=== PATIENT | female | born 1945 | race Caucasian/White ===

== ENCOUNTER → 2018-02-07 10:24 | Outpatient (CLI) | payer MEDICARE, OTHER, SELFPAY ==
[2018-02-07 11:14] LABS: Add Manual Diff / Slide Review NO; Basophils Percent Auto 0.4 % (0-2); Eosinophils Percent Auto 1.1 % (2-4); Hematocrit 46.3 % (36-46); Hemoglobin 15.8 g/dL (12.0-16.0); Lymphocytes Percent Auto 24.7 % (25-40); Mean Corpuscular HGB Conc 34.1 % (30-36); Mean Corpuscular Hemoglobin 32.7 PG (26-34); Mean Corpuscular Volume 95.8 fL (80-100); Monocytes Percent Auto 6.8 % (3-14); Neutrophils Absolute Auto 5800 /uL (3000-5900); Platelet Count 254 X10^3/uL (150-400); Red Blood Cell Count 4.84 X10^6/uL (4.0-5.2); Red Cell Distribution Width 13.4 % (11.6-14.8); White Blood Cell Count 8.6 X10^3/uL (4.5-11.0)
[2018-02-07 11:29] LABS: PTT Partial Thromboplastin Tim 32 SECONDS (26.4-36.2)
== END ==
PROVIDERS: PCP Family Medicine; Visit Provider Internal Medicine
DX: K92.1 Melena (principal)
CPT/HCPCS: 36415; 85025; 85610; 85730

== ENCOUNTER → 2018-04-13 07:41 | Outpatient (CLI) | payer MEDICARE, OTHER, SELFPAY ==
[2018-04-13 10:12] LABS: Alanine Aminotransferase 19 IU/L (9-52); Albumin 4.1 g/dL (3.5-5.0); Albumin Globulin Ratio 1.2 (1.0-2.8); Alkaline Phosphatase 100 U/L (38-126); Aspartate Aminotransferase 26 IU/L (14-36); BUN Creatinine Ratio 21.4 (6-22); Bilirubin Total 0.5 mg/dL (0.2-1.3); Blood Urea Nitrogen 15 mg/dL (7-17); Calcium 9.1 mg/dL (8.4-10.2); Carbon Dioxide 27 mmol/L (22-32); Chloride 106 mmol/L (98-107); Cholesterol 229 mg/dL (140-199); Estimated Glomerular Filt Rate > 60.0 mL/min (>60); Globulin 3.3 g/dL (1.7-4.1); Glucose 94 mg/dL (80-110); HDL Cholesterol 78 mg/dL (40-60); HEMOLYSIS < 15 (0-50); LDL Cholesterol Calculated 130 mg/dL (<100); Potassium 4.2 mmol/L (3.4-5.1); Sodium 143 mmol/L (137-145); Total Protein 7.4 g/dL (6.3-8.2); Triglycerides 104 mg/dL (35-150)
[2018-04-13 10:32] LABS: Thyroid Stimulating Hormone 1.34 uIU/mL (0.47-4.68)
== END ==
PROVIDERS: PCP Family Medicine; Visit Provider Family Medicine
DX: Z13.0 Encounter for screening for diseases of the blood and blood-forming organs and certain disorders involving the immune mechanism (principal); Z13.220 Encounter for screening for lipoid disorders; Z13.29 Encounter for screening for other suspected endocrine disorder
CPT/HCPCS: 36415; 80053; 80061; 84443

== ENCOUNTER 2018-04-22 11:54 | Day surgery (SDC) | payer MEDICARE, OTHER, SELFPAY ==
--- NOTE | 2018-04-22 | PATH_ITS ---
[facility] Accession Number: [id number] . 01 Material submitted: . PART A: RANDOM CECUM BIOPSIES PART B: RANDOM COLON BIOPSIES . 02 Diagnosis: A-B. Random Cecum, Random Colon, Biopsies: Lymphocytic colitis. MRV/04/23/2018 . 02 Comment: As part of routine quality engineer medical device, Dr. Gillette has reviewed this case and agrees with the above diagnosis. . 02 Electronically signed: . Kehinde Mercado MD, PhD, Pathologist NPI- [id number] . 01 Gross description: . Received two formalin-filled containers both labeled with the patient's name. . A. In a container labeled random cecum are multiple less than 0.1 to 0.3 cm portions of tissue. Entirely submitted in cassette A. B. In a container labeled random colon are multiple 0.1 to 0.3 cm portions of tissue. Filtered, wrapped and entirely submitted in cassette B. ([facility]:[id number]) /[facility] . 02 Pathologist provided ICD-10: K52.89 . 02 CPT . 106641, 311786 Performed at: 01 [facility] [address] [place] [address], [place], [place] [id number] MD Abel Rees MD Phone: [phone] Performed at: 02 [facility] [address] [place], [place] [id number] MD Diane Gillette MD Phone: [phone]
[2018-04-22] MEDS: SODIUM CHLORIDE 0.9% 1,000 ML 200 ML IV ×2 (12:09→14:29)
[2018-04-22 12:13] VITALS: BP 154/84; PULSE 77; RESP 18; TEMP 36.9; O2SAT 100; BMI 25.2
--- NOTE | 2018-04-22 13:03 | PM.HP.1 ---
History of Present Illness Date Patient Seen: 04/22/18 Time Patient Seen: 13:03 Chief complaint: [id number] Narrative: Patient is woman with chronic diarrhea and occasional blood in her stool here for screening colonoscopy. Patient History Medical History Foot pain (Chronic) Knee pain (Chronic) Osteoporosis (Chronic) Scoliosis (Chronic) Shoulder pain (Chronic) Sjogren's syndrome (Chronic) Chicken pox (Resolved) Fractures (Resolved) Measles (Resolved) Mumps (Resolved) Surgical History Anesthesia complication (Resolved) History of colonoscopy (Resolved 03/22/12) Family & Social History Family History: Reviewed 04/22/18 by Noel Ray MD Social History: household members spouse Tobacco & Substance use: Smoking Status Never smoker alcohol intake current Meds Home Medications Medication Instructions Recorded Confirmed Type calcium carbonate 600 mg PO DAILY #0 10/11/16 04/22/18 History multivitamin [Multiple Vitamins] 1 tab PO QDAY #0 10/11/16 04/22/18 History Allergies Allergy/AdvReac Type Severity Reaction Status Date / Time ampicillin [AMPICILLIN] Allergy Mild ANGIOEDEMA Unverified 04/19/18 09:55 Sulfa (Sulfonamide Allergy Mild RASH Unverified 04/19/18 09:55 Antibiotics) [SULFA (SULFONAMIDE ANTIBIOTICS)] Exam Vital Signs (past 8 hours): - 04/22/18 12:13 Temperature 98.4 F Pulse Rate 77 Respiratory Rate 18 Blood Pressure 154/84 H Pulse Oximetry 100 Oxygen Delivery Method Room Air Narrative Exam Narrative: Operative no apparent distress. Lungs are clear to auscultation. Heart regular rate and rhythm no murmur gallop abdomen is soft nontender without mass. Alert oriented x3. Assessment & Plan Plan: Assessment/Plan Narrative: Patient with chronic diarrhea rectal bleeding due for screening colonoscopy. I have discussed procedure rationale with her. Risks of bleeding, perforation were advance the state major operation, failure to find removal lesions the potential tattoo were discussed. Patient wished proceed.
--- NOTE | 2018-04-22 13:06 | PM.PREOP ---
Pre-operative Note Interval Note Pre-op Check: Yes History & Physical exam performed today by Physician Changes: No ASA Class (for procedural sedation): I
[2018-04-22] MEDS: MIDAZOLAM 5 MG/5 ML VIAL IV (14:31)
[2018-04-22] MEDS: fentaNYL 250 MCG/5 ML INJ IV (14:31)
[2018-04-22 14:45] VITALS: BP 145/74; PULSE 76; RESP 16; TEMP 36.6; O2SAT 97
--- NOTE | 2018-04-22 14:47 | P.OP.ENDO_ITS ---
Operative Date/Time/Diagnoses Date of procedure: 04/22/18 Time of procedure: 14:38 Post-op diagnosis: same (Mild appearing colitis without ulceration. Internal hemorrhoids small without ulceration.) Procedure & Clinicians Study performed: Colonoscopy with cold biopsy Same procedure as scheduled: Yes Indications: Screening. chronic diarrhea Surgeon: Noel Ray Procedure Notes SCOAP/Timeout: Performed Procedure in detail: The patient was placed in the left lateral decubitus position and underwent IV sedation directed by the surgeon consisting of fentanyl and Versed. Digital exam was remarkable for an increased sphincter tone.. The scope was inserted and advanced through the rectum into the sigmoid , descending, transverse, and ascending colon. We had to apply pressure repositioned the patient, and insert a stiffener in order to reach the ascending colon and cecum. The entire colon was somewhat injected/inflamed. There were no ulcers however. I chose to biopsy randomly and found that the mucosa came off in small sheets and bled easily. The cecum was reached identified by the ileocecal valve and the appendiceal opening. The ileocecal valve was unable to be cannulated. The scope was gradually brought out. Some biopsies of the surface of the ileocecal valve were included with the cecal biopsies I think. No Polyps were found. The scope ultimately was retroflexed in the rectum. The appearance was normal except for some small non ulcerated internal hemorrhoids.. The scope was removed and the patient tolerated the procedure well Scope withdrawal time: 11 min Sedation minutes: 32 Findings: colitis (Very mild if present. Biopsies pending.) and internal hemorrhoids Specimen(s): other (Random colon cecal biopsies) Complications: none Recommendations: Colonscopy in 5 years Follow up: as needed Disposition: PACU
[2018-04-22 14:49] VITALS: BP 129/70; PULSE 82; RESP 17; O2SAT 97
[2018-04-22 14:56] VITALS: BP 151/84; PULSE 75; RESP 17; TEMP 36.3; O2SAT 99
[2018-04-22 16:30] LABS: Adenovirus F 40/41 Not Detected (Not Detect); Astrovirus Not Detected (Not Detect); Campylobacter Not Detected (Not Detect); Clostridium difficile toxin AB Not Detected (Not Detect); Cryptosporidium Not Detected (Not Detect); Cyclospora cayetanensis Not Detected (Not Detect); Entamoeba histolytica Not Detected (Not Detect); Enteroaggregative E.coli Not Detected (Not Detect); Enteropathogenic E.coli Not Detected (Not Detect); Enterotoxigenic E.coli It/st Not Detected (Not Detect); Giardia lamblia Not Detected (Not Detect); Norovirus GI/GII Not Detected (Not Detect); Plesiomonsa shigelloides Not Detected (Not Detect); Rotavirus A Not Detected (Not Detect); Salmonella Not Detected (Not Detect); Sapovirus Not Detected (Not Detect); Shiga-like toxin-prod E.coli Not Detected (Not Detect); Shigella/Enteroinvasive E.coli Not Detected (Not Detect); Vibrio Not Detected (Not Detect); Vibrio cholerae Not Detected (Not Detect); Yersinia enterocolitica Not Detected (Not Detect)
== END 2018-04-22 15:18 | disposition home or self-care (01) ==
PROVIDERS: Family Provider Family Medicine; PCP Family Medicine; Visit Provider Specialist
PROC: 0DJD8ZZ Inspection of Lower Intestinal Tract, Via Natural or Artificial Opening Endoscopic (ICD-10-PCS; CPT 45378; principal; 2018-04-22 12:45)
DX: K52.89 Other specified noninfective gastroenteritis and colitis (principal); R19.7 Diarrhea, unspecified; M35.00 Sjogren syndrome, unspecified; K64.8 Other hemorrhoids
CPT/HCPCS: 45380; 87507; 88305; 99152; 99153; J2250; J3010

== ENCOUNTER 2018-04-23 01:44 | Emergency (ER) | payer MEDICARE, OTHER, SELFPAY ==
[2018-04-23 01:53] VITALS: BP 177/79; PULSE 104; RESP 16; TEMP 37.9; O2SAT 98; BMI 25.2
--- NOTE | 2018-04-23 02:01 | DI.RAD.S_ITS ---
PROCEDURE: XR CHEST 1V INDICATIONS: fever/chills post-op colonoscopy TECHNIQUE: One view of the chest was acquired. COMPARISON: [facility], , CHEST 2 VIEW, 02/14/2011, 12:41. FINDINGS: Surgical changes and devices: None. Lungs and pleura: No pleural effusions or pneumothorax. No acute consolidation. There is scattered subsegmental atelectasis and/or scarring Mediastinum: Mediastinal contours appear normal. Heart size is normal. Bones and chest wall: No suspicious bony lesions. Overlying soft tissues appear unremarkable. Lateral curvature of the spine and discogenic changes. IMPRESSION: No acute disease. Widespread mild diffuse ill-defined and groundglass opacities presumably chronic interstitial changes and scarring. Although in the absence of more recent comparison studies, cannot entirely exclude much less likely pulmonary edema. Please correlate clinically. Dictated by: Abdulaziz Sarmiento M.D. on 04/23/2018 at 8:19 Approved by: Abdulaziz Sarmiento M.D. on 04/23/2018 at 8:23
[2018-04-23] MEDS: SODIUM CHLORIDE 0.9% 1,000 ML 1000 ML IV (02:22)
[2018-04-23 02:23] VITALS: TEMP 37.9
[2018-04-23] MEDS: ACETAMINOPHEN 325 MG TABLET 650 MG PO (02:23)
[2018-04-23] MEDS: IBUPROFEN 400 MG TABLET 800 MG PO (02:23)
[2018-04-23 02:24] LABS: Add Manual Diff / Slide Review NO; Basophils Percent Auto 0.5 % (0-2); Hematocrit 41.3 % (36-46); Lymphocytes Percent Auto 7.1 % (25-40); Mean Corpuscular Hemoglobin 32.2 PG (26-34); Mean Corpuscular Volume 94.7 fL (80-100); Monocytes Percent Auto 4.6 % (3-14); Neutrophils Absolute Auto 12800 /uL (3000-5900); Neutrophils Percent Auto 86.8 % (50-75); Platelet Count 279 X10^3/uL (150-400); Red Blood Cell Count 4.36 X10^6/uL (4.0-5.2); Red Cell Distribution Width 12.8 % (11.6-14.8); White Blood Cell Count 14.7 X10^3/uL (4.5-11.0)
--- NOTE | 2018-04-23 02:26 | ED_ITS ---
HPI - Fever General Chief Complaint: Fever Stated Complaint: CHILLS, HAD COLONSCOPY YESTERDAY Time Seen by Provider: 04/23/18 02:01 Source: patient and other (Dr. Ray) Mode of arrival: ambulatory Limitations: no limitations History of Present Illness HPI Narrative: Patient presents emergency department complaining of a feeling of chills that woke her up tonight. Patient has had a colonoscopy with Dr. Ray yesterday, after having ill formed, frequent stools for some time. Patient states she had also been having blackish green stool color. Patient denies feeling ill prior to her colonoscopy. She does note that she was very tired because of being up most of the night with the bowel prep. She states that after the procedure, she spent about an hour and half sleeping on the couch , and did not do very much today. She does not believe she was catheterized or intubated during the procedure. Patient is not a diabetic and states she is otherwise healthy. She did have a flu shot 3 days ago, but states she felt fine for the 1st 2 days after the vaccine was administered. No sick contacts. No other complaints at this time. Patient denies any URI type symptoms. No abdominal pain. She has had a slight amount of blood in her stool since the colonoscopy but otherwise, stooling has been unremarkable. No dysuria. The colonoscopy reportedly showed diffuse inflammation throughout the bowel, for which reason biopsies were performed. Related Data Home Medications Medication Instructions Recorded Confirmed calcium carbonate 600 mg PO DAILY #0 10/11/16 04/22/18 multivitamin [Multiple Vitamins] 1 tab PO QDAY #0 10/11/16 04/22/18 Previous Rx's Medication Instructions Recorded nitrofurantoin monohyd/m-cryst 100 mg PO BID #14 cap 04/23/18 [Macrobid] Allergies Allergy/AdvReac Type Severity Reaction Status Date / Time ampicillin [AMPICILLIN] Allergy Mild ANGIOEDEMA Verified 04/23/18 01:55 Sulfa (Sulfonamide Allergy Mild RASH Verified 04/23/18 01:55 Antibiotics) [SULFA (SULFONAMIDE ANTIBIOTICS)] Review of Systems Review of Systems All systems reviewed & are unremarkable except as noted in HPI and below Constitutional Reports chills, Denies fever(s), Denies lethargy and Denies weakness Eyes Denies change in vision, Denies eye discharge, Denies irritation and Denies loss of vision ENT Ears, Nose, Mouth, and Throat: Denies change in voice, Denies neck pain and Denies sore throat Cardiovascular Denies chest pain, Denies irregular heart rhythm, Denies lightheadedness, Denies palpitations, Denies dyspnea, Denies dyspnea on exertion and Denies orthopnea Respiratory Denies cough, Denies dyspnea, Denies dyspnea on exertion and Denies wheezing Gastrointestinal Gastrointestinal: Denies abdominal pain, Denies change in bowel habits, Denies diarrhea, Denies nausea and Denies vomiting Genitourinary Denies hematuria, Denies flank pain, Denies urinary incontinence and Denies urinary urgency Musculoskeletal Denies neck pain Integumentary/Breasts Denies pruritus, Denies erythema, Denies rash and Denies wounds Neurologic Denies confusion, Denies loss of vision and Denies weakness Psychiatric Denies anxiety, Denies confusion, Denies depression, Denies homicidal ideation and Denies suicidal ideation Endocrine Denies palpitations Hematologic/Lymphatic Denies easy bruising Allergic/Immunologic Denies wheezing [facility] Medical History Foot pain (Chronic) Knee pain (Chronic) Osteoporosis (Chronic) Scoliosis (Chronic) Shoulder pain (Chronic) Sjogren's syndrome (Chronic) Chicken pox (Resolved) Fractures (Resolved) Measles (Resolved) Mumps (Resolved) Surgical History Anesthesia complication (Resolved) History of colonoscopy (Resolved 03/22/12) Family History Father Heart disease High cholesterol Osteoporosis Grandfather Stroke Mother Diabetes mellitus High cholesterol Grandfather Cancer Sister No problems noted. Social History marital status: household members: spouse occupational status: previously employed Smoking Status: Never smoker alcohol intake: current substance use type: does not use Exam Initial Vital Signs Initial Vital Signs: Vital Signs Temperature 100.2 F H 04/23/18 01:53 Pulse Rate 104 H 04/23/18 01:53 Respiratory Rate 16 04/23/18 01:53 Blood Pressure 177/79 H 04/23/18 01:53 Pulse Oximetry 98 04/23/18 01:53 Const General: cooperative and well developed Nutritional Appearance: well nourished Orientation: alert, awake, oriented x3 and not confused [facility] Head: normocephalic and atraumatic Ears: external ears normal Nose: external nose normal and No nasal discharge Face and sinus: face symmetric and No dry mucous membranes Mouth: oral mucosae normal and moist mucous membranes Teeth and gingiva: dentition normal Eyes General: appearance normal, both eyes and all related structures Eyelids: eyelids normal Conjunctivae: conjunctivae normal Sclera: sclerae normal Pupils: PERRL EOM: EOM intact bilaterally Neck Neck: normal visual inspection, trachea midline, No lymphadenopathy, No midline deformity and No JVD Lymphatic: No lymphedema Chest Chest: normal inspection of the chest Resp Effort & Inspection: normal respiratory effort, able to speak in complete sentences, no respiratory distress and no use of accessory muscles Auscultation: clear to auscultation bilaterally, no rales, no rhonchi and no wheezes Cardio Rate: regular rate Rhythm: regular rhythm Heart Sounds: no click, no gallops, no murmurs and no rubs Pulses: normal peripheral pulses GI Inspection: non-distended Palpation: soft, no hepatosplenomegaly, No guarding, No pulsatile mass and tender (Mild, epigastric and right lower quadrant.) Back/Spine/Pelvis Back: No CVA tenderness Cervical Spine: cervical ROM normal and No pain with cervical ROM Thoracic/Lumbar Spine: thoracic and lumbar spine normal to inspection Skin General: no rashes or lesions noted, No jaundice and No petechiae Neuro General: alert, oriented x3, gait normal and no focal motor deficits Speech: speech normal Extrem General: full ROM, no clubbing, cyanosis or edema, no pedal edema and no calf tenderness Psych Appearance: well kempt Mental Status: mental status grossly normal Attitude: cooperative Thought Content: normal and suicidality Judgment: judgment good Course Course Narrative: Patient was worked up with labs, chest x-ray, and urinalysis. She was given a L of normal saline, as well as doses of Tylenol and ibuprofen. She was found to have a UTI and leukocytosis, and was treated with Macrobid. Orders Ordered: ED Orders 04/23/18 02:01 XR chest 1V Stat 04/23/18 02:15 Complete Blood Count AUTO DIFF Stat 04/23/18 02:30 Comprehensive Metabolic Panel Stat 04/23/18 03:45 Urinalysis and Microscopic Stat Urine Culture Stat Discontinued Medications Acetaminophen (Tylenol) 650 mg PO NOW ONE Stop: 04/23/18 02:02 Last Admin: 04/23/18 02:23 Dose: 650 mg Sodium Chloride (Normal Saline 0.9%) 1,000 mls @ 1,000 mls/hr IV BOLUS ONE Stop: 04/23/18 03:00 Last Infusion: 04/23/18 03:44 Dose: 0 mls/hr Admin: 04/23/18 02:22 Dose: 1,000 mls/hr Ibuprofen (Advil) 800 mg PO NOW ONE Stop: 04/23/18 02:02 Last Admin: 04/23/18 02:23 Dose: 800 mg Nitrofurantoin Macrocrystals (Macrobid 100 Mg Capsule) 100 mg PO NOW ONE Stop: 04/23/18 05:19 Last Admin: 04/23/18 05:35 Dose: 100 mg Vital Signs - 8 hr 04/23/18 01:53 04/23/18 02:23 04/23/18 03:57 Temperature 100.2 F H 100.2 F H 99.7 F H Pulse Rate 104 H 87 Respiratory Rate 16 16 Blood Pressure 177/79 H Blood Pressure [Right Arm] 144/65 H Pulse Oximetry 98 95 04/23/18 03:59 04/23/18 04:00 04/23/18 05:38 Temperature 99.7 F H 99.7 F H 98.8 F Pulse Rate 87 Respiratory Rate 16 Blood Pressure Blood Pressure [Right Arm] 121/83 Pulse Oximetry 98 MDM - Fever Medical Records Attestation: I reviewed the patient's medical records. Lab Data Attestation: I reviewed the patient's lab results. Result diagrams: 04/23/18 02:15 04/23/18 02:30 Lab Results 04/23/18 04/23/18 04/23/18 Range/Units 02:15 02:30 03:45 WBC 14.7 H (4.5-11.0) X10^3/uL RBC 4.36 (4.0-5.2) X10^6/uL Hgb 14.0 (12.0-16.0) g/dL Hct 41.3 (36-46) % MCV 94.7 (80-100) fL MCH 32.2 (26-34) PG MCHC 34.0 (30-36) % RDW 12.8 (11.6-14.8) % Plt Count 279 (150-400) X10^3/uL Neut % (Auto) 86.8 H (50-75) % Lymph % (Auto) 7.1 L (25-40) % Moore % (Auto) 4.6 (3-14) % Eos % (Auto) 1.0 L (2-4) % Baso % (Auto) 0.5 (0-2) % Neut # (Auto) 18340 H (3078-9132) /uL Sodium 141 (137-145) mmol/L Potassium 3.7 (3.4-5.1) mmol/L Chloride 105 (98-107) mmol/L Carbon Dioxide 21 L (22-32) mmol/L BUN 14 (7-17) mg/dL Creatinine 0.60 (0.52-1.04) mg/dL Estimated GFR > 60.0 (>60) mL/min BUN/Creatinine Ratio 23.3 H (6-22) Glucose 113 H (80-110) mg/dL Calcium 9.2 (8.4-10.2) mg/dL Total Bilirubin 0.6 (0.2-1.3) mg/dL AST 26 (14-36) IU/L ALT 16 (9-52) IU/L Alkaline Phosphatase 114 (38-126) U/L Total Protein 7.8 (6.3-8.2) g/dL Albumin 4.4 (3.5-5.0) g/dL Globulin 3.4 (1.7-4.1) g/dL Albumin/Globulin Ratio 1.3 (1.0-2.8) Urine Color Yellow Urine Appearance Clear Urine pH 5.0 (4.5-8.0) Ur Specific Edwards 1.020 (1.000-1.035) Urine Protein Negative (Negative) Urine Glucose (UA) Negative (Normal) g/dL Urine Ketones Negative (NEGATIVE) Urine Occult Blood 2+ H (Negative) Urine Nitrate Negative (Negative) Urine Bilirubin Negative (NEGATIVE) Urine Urobilinogen 0.2 (0.2) E.U./dL Ur Leukocyte Esterase 2+ H (NEGATIVE) Urine RBC 0-1/hpf (0-5/HPF) Urine WBC 5-10/hpf H (0-5/HPF) Urine Bacteria Few (2-10) H (None) Ur Culture Indicated? Specimen cultured Micro UA Comment Not Reportable Discharge Plan Departure Patient Disposition: Home Clinical Impression: Urinary tract infection Discharge Date/Time: 04/23/18 05:57 Interventions: ED Discharge Assessment Last Done: 04/23/18 05:57 Instructions: DI for Urinary Tract Infection (UTI) Activity Restrictions/Additional Instructions: Your labs showed a mildly elevated white blood cell count, which can signify infection, but otherwise, looked good. Your urinalysis was positive for infection. Please take the antibiotics, as directed, until gone, and follow up with your regular doctor in 1 week if not better. Prescriptions: New nitrofurantoin monohyd/m-cryst [Macrobid] 100 mg capsule 100 mg PO BID Qty: 14 RF: 0 No Action multivitamin [Multiple Vitamins] 1 EACH tablet 1 tab PO QDAY Qty: 0 RF: 0 calcium carbonate 600 MG tablet 600 mg PO DAILY Qty: 0 RF: 0 Referrals: Macrina Iniguez MD [Primary Care Provider] -
[2018-04-23 02:53] LABS: Alanine Aminotransferase 16 IU/L (9-52); Albumin 4.4 g/dL (3.5-5.0); Albumin Globulin Ratio 1.3 (1.0-2.8); Alkaline Phosphatase 114 U/L (38-126); Aspartate Aminotransferase 26 IU/L (14-36); BUN Creatinine Ratio 23.3 (6-22); Bilirubin Total 0.6 mg/dL (0.2-1.3); Blood Urea Nitrogen 14 mg/dL (7-17); Calcium 9.2 mg/dL (8.4-10.2); Carbon Dioxide 21 mmol/L (22-32); Chloride 105 mmol/L (98-107); Estimated Glomerular Filt Rate > 60.0 mL/min (>60); Globulin 3.4 g/dL (1.7-4.1); Glucose 113 mg/dL (80-110); HEMOLYSIS 20 (0-50); Potassium 3.7 mmol/L (3.4-5.1); Sodium 141 mmol/L (137-145); Total Protein 7.8 g/dL (6.3-8.2)
[2018-04-23 03:57] VITALS: BP 144/65; PULSE 87; RESP 16; TEMP 37.6; O2SAT 95
[2018-04-23 03:59] VITALS: TEMP 37.6
[2018-04-23 04:00] VITALS: TEMP 37.6
[2018-04-23 04:17] LABS: Appearance Urine UA CLEAR; Bilirubin Urine UA NEGATIVE (NEGATIVE); Color Urine UA YELLOW; Glucose Urine UA NEGATIVE (Normal); Ketones Urine UA NEGATIVE (NEGATIVE); Leukocyte Esterase Urine UA 2+ (NEGATIVE); Nitrite Urine UA NEGATIVE (Negative); Occult Blood Urine UA 2+ (Negative); Protein Urine UA NEGATIVE (Negative); Urobilinogen Urine UA 0.2 E.U./dL (0.2)
[2018-04-23 04:41] LABS: WBC Urine 5-10/HPF (0-5/HPF)
[2018-04-23 04:43] LABS: Bacteria Urine Few (2-10); Culture Indicated Urine Specimen Cultured; RBC Urine 0-1/HPF (0-5/HPF)
[2018-04-23] MEDS: NITROFURANTOIN ER 100 MG CAPSULE PO (05:35)
[2018-04-23 05:38] VITALS: BP 121/83; PULSE 87; RESP 16; TEMP 37.1; O2SAT 98
== END 2018-04-23 05:57 | disposition home or self-care (01) ==
PROVIDERS: Emergency Provider Emergency Medicine; PCP Family Medicine
DX: N39.0 Urinary tract infection, site not specified (principal)
CPT/HCPCS: 36415; 36591; 71045; 80053; 81001; 85025; 87086; 96360; 99283; 99284

== ENCOUNTER → 2018-04-29 11:55 | Outpatient (CLI) | payer MEDICARE, OTHER, SELFPAY ==
--- NOTE | 2018-04-29 | DI.MG.S_ITS ---
BILATERAL DIGITAL SCREENING MAMMOGRAM 3D/2D WITH CAD: 04/29/2018 CLINICAL: Routine screening. Comparison is made to exams dated: 11/01/2016 mammogram, 05/06/2015 mammogram, and 03/20/2014 mammogram - [facility]. There are scattered fibroglandular elements in both breasts. Current study was also evaluated with a Computer Aided Detection (CAD) system. No significant masses, calcifications, or other findings are seen in either breast. There has been no significant interval change. IMPRESSION: NEGATIVE There is no mammographic evidence of malignancy. A 1 year screening mammogram is recommended. This exam was interpreted at Station ID: [id number]. NOTE: For mammograms, a report in lay terms will be sent to the patient. Approximately 15% of breast malignancies will not be visualized mammographically. In the management of a palpable breast mass, a negative mammogram must not discourage biopsy of a clinically suspicious lesion. Electronically Signed By: Abel simms/chase:04/30/2018 11:36:35 letter sent: Normal Exam ACR BI-RADS Category 1: Negative 3341F
== END ==
PROVIDERS: PCP Family Medicine; Visit Provider Family Medicine
DX: Z12.31 Encounter for screening mammogram for malignant neoplasm of breast (principal)
CPT/HCPCS: 77063; 77067

== ENCOUNTER → 2018-05-10 16:59 | Outpatient (CLI) | payer MEDICARE, OTHER, SELFPAY ==
[2018-05-10 17:27] LABS: Appearance Urine UA CLEAR; Bilirubin Urine UA NEGATIVE (NEGATIVE); Color Urine UA YELLOW; Glucose Urine UA NEGATIVE (Normal); Ketones Urine UA NEGATIVE (NEGATIVE); Leukocyte Esterase Urine UA 1+ (NEGATIVE); Nitrite Urine UA NEGATIVE (Negative); Occult Blood Urine UA 2+ (Negative); Protein Urine UA NEGATIVE (Negative); Urobilinogen Urine UA 0.2 E.U./dL (0.2)
[2018-05-10 17:41] LABS: Bacteria Urine Occasional (0-1); Culture Indicated Urine Specimen Cultured; RBC Urine 0-1/HPF (0-5/HPF); Squamous Epithelial Cell Urine None Seen; WBC Urine 5-10/HPF (0-5/HPF)
== END ==
PROVIDERS: PCP Family Medicine; Visit Provider Family Medicine
DX: R30.0 Dysuria (principal)
CPT/HCPCS: 81001; 87077; 87086

== ENCOUNTER → 2018-05-14 09:51 | Outpatient (CLI) | payer MEDICARE, OTHER, SELFPAY | PROVIDERS: PCP Family Medicine; Visit Provider Family Medicine | DX: R10.9 Unspecified abdominal pain (principal) | CPT/HCPCS: 87086 ==

== ENCOUNTER → 2020-09-07 10:00 | Outpatient (CLI) | payer MEDICARE, OTHER, SELFPAY ==
[2020-09-07 12:15] LABS: Appearance Urine UA CLEAR; Bilirubin Urine UA NEGATIVE (NEGATIVE); Color Urine UA YELLOW; Glucose Urine UA NEGATIVE (Negative); Ketones Urine UA NEGATIVE (NEGATIVE); Leukocyte Esterase Urine UA 1+ (NEGATIVE); Nitrite Urine UA NEGATIVE (Negative); Occult Blood Urine UA 3+ (Negative); Protein Urine UA TRACE (Negative); Specific Gravity Urine UA >=1.030 (1.000-1.035); Urobilinogen Urine UA 0.2 E.U./dL (0.2)
[2020-09-07 12:36] LABS: Bacteria Urine Few (2-10); Culture Indicated Urine Specimen Cultured; RBC Urine 30-100/HPF (0-5/HPF); Squamous Epithelial Cell Urine 1-5 /HPF (0-5/HPF); WBC Urine >100/HPF (0-5/HPF)
== END ==
PROVIDERS: PCP Family Medicine; Referring Provider Family Medicine; Visit Provider Family Medicine
DX: R30.0 Dysuria (principal); R35.0 Frequency of micturition; R39.15 Urgency of urination
CPT/HCPCS: 81001; 87077; 87086; 87186

== ENCOUNTER → 2020-09-25 10:33 | Outpatient (CLI) | payer MEDICARE, OTHER, SELFPAY ==
--- NOTE | 2020-09-25 10:37 | DI.MG.S_ITS ---
BILATERAL DIGITAL SCREENING MAMMOGRAM 3D/2D WITH CAD: 09/25/2020 CLINICAL: Routine screening. Comparison is made to exams dated: 04/29/2018 mammogram, 11/01/2016 mammogram, 05/06/2015 mammogram, and 03/20/2014 mammogram - [facility]. There are scattered fibroglandular elements in both breasts. Current study was also evaluated with a Computer Aided Detection (CAD) system. No significant masses, calcifications, or other findings are seen in either breast. There has been no significant interval change. IMPRESSION: NEGATIVE There is no mammographic evidence of malignancy. A 1 year screening mammogram is recommended. This exam was interpreted at Station ID: [id number]. NOTE: For mammograms, a report in lay terms will be sent to the patient. Approximately 15% of breast malignancies will not be visualized mammographically. In the management of a palpable breast mass, a negative mammogram must not discourage biopsy of a clinically suspicious lesion. Electronically Signed By: Chase betancourt/chase:09/27/2020 08:20:52 letter sent: Normal Exam ACR BI-RADS Category 1: Negative 3341F
== END ==
PROVIDERS: PCP Family Medicine; Referring Provider Family Medicine; Visit Provider Family Medicine
DX: Z12.31 Encounter for screening mammogram for malignant neoplasm of breast (principal)
CPT/HCPCS: 77063; 77067

== ENCOUNTER → 2021-11-07 07:09 | Outpatient (CLI) | payer MEDICARE, OTHER, SELFPAY ==
--- NOTE | 2021-11-07 07:13 | DI.RAD.S_ITS ---
PROCEDURE: XR LUMBAR SPINE 2-3V INDICATIONS: Low back pain; possible OA TECHNIQUE: 3 views of the lumbar spine were acquired. COMPARISON: None. FINDINGS: Bones: 5 [id number] vertebrae are present. There is normal bony alignment. There is approximately 20? of convex left lumbar spine scoliosis. No vertebral body compression fractures. No suspicious bony lesions. Mild degenerative disc changes noted throughout the thoracic spine. Mild to moderate L3-L4, L4-L5 and L5-S1 facet arthropathy. Mild L2-L3 facet arthropathy. Soft tissues: Overlying bowel gas pattern is normal. No suspicious soft tissue calcifications. IMPRESSION: 1. Multilevel degenerative disc disease. 2. Multilevel facet arthropathy. 3. No fracture. No acute osseous lesion. If symptoms and/or clinical suspicion for pathology persists, evaluation with MRI should be considered for further assessment. 4. Convex left scoliosis. Dictated by: Carmel Brock MD, PhD on 11/07/2021 at 13:22 Approved by: Carmel Brock MD, PhD on 11/07/2021 at 13:23
--- NOTE | 2021-11-07 07:13 | DI.RAD.S_ITS ---
PROCEDURE: XR HIP W PEL IF DONE CARA MIN 4V INDICATIONS: bilateral hip pain R > L; suspect OA TECHNIQUE: AP pelvis with lateral view(s) of the right and left hip(s). COMPARISON: None. FINDINGS: Bones: No fractures or dislocations. Pelvic ring appears intact. No suspicious bony lesions. Soft tissues: The visualized bowel gas pattern is normal. No suspicious soft tissue calcifications. IMPRESSION: . No osseous lesion. If symptoms and/or clinical suspicion for pathology persists, further assessment with advanced imaging (e.g. CT, MRI or bone scan) should be considered. Dictated by: Carmel Brock MD, PhD on 11/07/2021 at 13:40 Approved by: Carmel Brock MD, PhD on 11/07/2021 at 13:41
[2021-11-07 09:11] LABS: Alanine Aminotransferase 15 IU/L (<35); Albumin 4.3 g/dL (3.5-5.0); Albumin Globulin Ratio 1.3 (1.0-2.8); Alkaline Phosphatase 107 U/L (38-126); Aspartate Aminotransferase 28 IU/L (14-36); BUN Creatinine Ratio 15.3 (6-22); Bilirubin Total 0.6 mg/dL (0.2-1.3); Blood Urea Nitrogen 13 mg/dL (7-17); Carbon Dioxide 27 mmol/L (22-32); Chloride 106 mmol/L (98-107); Cholesterol 262 mg/dL (140-199); Estimated Glomerular Filt Rate > 60 mL/min (>60); Globulin 3.3 g/dL (1.7-4.1); Glucose 99 mg/dL (80-110); HEMOLYSIS < 15 (0-50); Potassium 4.5 mmol/L (3.4-5.1); Sodium 141 mmol/L (137-145); Total Protein 7.6 g/dL (6.3-8.2); Triglycerides 115 mg/dL (35-150)
[2021-11-07 09:32] LABS: TSH w/ Reflex to FT4 1.86 uIU/mL (0.47-4.68)
[2021-11-07 09:39] LABS: HDL Cholesterol 141 mg/dL (40-60); LDL Cholesterol Calculated 98 mg/dL (<100)
== END ==
PROVIDERS: PCP Family Medicine; Referring Provider Physician Assistant; Visit Provider Physician Assistant
DX: M47.817 Spondylosis without myelopathy or radiculopathy, lumbosacral region (principal); M51.36 Other intervertebral disc degeneration, lumbar region; M41.86 Other forms of scoliosis, lumbar region; M25.552 Pain in left hip; M25.551 Pain in right hip; M47.816 Spondylosis without myelopathy or radiculopathy, lumbar region; M54.50 Low back pain, unspecified; E78.5 Hyperlipidemia, unspecified; K52.832 Lymphocytic colitis; R03.0 Elevated blood-pressure reading, without diagnosis of hypertension
CPT/HCPCS: 36415; 72100; 73522; 80053; 80061; 84443

== ENCOUNTER → 2021-12-01 12:30 | Outpatient (CLI) | payer MEDICARE, OTHER, SELFPAY | PROVIDERS: PCP Family Medicine; Referring Provider Physician Assistant; Visit Provider Physician Assistant | DX: E28.39 Other primary ovarian failure (principal); Z82.62 Family history of osteoporosis; M81.0 Age-related osteoporosis without current pathological fracture | CPT/HCPCS: 77080 ==

== ENCOUNTER → 2022-01-16 10:19 | Outpatient (CLI) | payer MEDICARE, OTHER, SELFPAY | PROVIDERS: PCP Family Medicine; Visit Provider Family Medicine | DX: R35.0 Frequency of micturition (principal) | CPT/HCPCS: 87086 ==

== ENCOUNTER → 2022-04-26 10:29 | Outpatient (CLI) | payer MEDICARE, OTHER, SELFPAY ==
[2022-04-27 08:11] LABS: Immunoglobulin A 571 mg/dL (64-422)
[2022-04-27 18:14] LABS: Tissue Transglutaminase IgA <2 U/mL (0-3); Tissue Transglutaminase IgG <2 U/mL (0-5)
== END ==
PROVIDERS: PCP Family Medicine; Referring Provider Internal Medicine Gastroenterology; Visit Provider Internal Medicine Gastroenterology
DX: R19.7 Diarrhea, unspecified (principal); K52.832 Lymphocytic colitis
CPT/HCPCS: 36415; 82784; 83516

== ENCOUNTER → 2023-01-09 13:25 | Outpatient (CLI) | payer MEDICARE, OTHER, SELFPAY ==
--- NOTE | 2023-01-09 13:27 | DI.RAD.S_ITS ---
PROCEDURE: XR FOOT RT MIN 3V INDICATIONS: R FOOT PAIN TECHNIQUE: 3 views of the foot were acquired. COMPARISON: [facility], , FOOT 3V RIGHT, 04/25/2016, 15:48. FINDINGS: Bones: No fractures or dislocations. No suspicious bony lesions. 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 Soft tissues: No tibiotalar joint effusion. Achilles tendon appears normal. IMPRESSION: No fracture. No acute osseous lesion. If symptoms and/or clinical suspicion for pathology persists, further assessment with repeat radiographs (7-10 days) or advanced imaging (e.g. CT, MRI or bone scan) should be considered. Dictated by: Carmel Brock MD, PhD on 01/09/2023 at 14:28 Approved by: Carmel Brock MD, PhD on 01/09/2023 at 14:28
--- NOTE | 2023-01-09 13:27 | DI.RAD.S_ITS ---
PROCEDURE: XR ANKLE RT MIN 3V INDICATIONS: R FOOT PAIN TECHNIQUE: 3 views of the ankle were acquired. COMPARISON: [facility], , ANKLE 3 VIEWS LEFT, 01/15/2015, 15:54. FINDINGS: Bones: No fractures or dislocations. Ankle mortise is normally aligned. No suspicious bony lesions. Soft tissues: No tibiotalar joint effusion. Achilles tendon appears normal. IMPRESSION: No acute abnormality. Dictated by: Charles Sorenson M.D. on 01/09/2023 at 15:04 Approved by: Charles Sorenson M.D. on 01/09/2023 at 15:04
== END ==
PROVIDERS: PCP Family Medicine; Referring Provider Student in an Organized Health Care Education/Training Program; Visit Provider Student in an Organized Health Care Education/Training Program
DX: S93.601A Unspecified sprain of right foot, initial encounter (principal); S93.401A Sprain of unspecified ligament of right ankle, initial encounter; X58.XXXA Exposure to other specified factors, initial encounter
CPT/HCPCS: 73610; 73630

== ENCOUNTER → 2023-09-13 09:43 | Outpatient (CLI) | payer MEDICARE, OTHER, SELFPAY | LOC: CAR 09:45 | PROVIDERS: PCP Family Medicine; Referring Provider Family Medicine; Visit Provider Family Medicine | DX: I63.9 Cerebral infarction, unspecified (principal) | CPT/HCPCS: 93246 ==

== ENCOUNTER 2023-10-09 14:02 | Emergency (ER) | payer MEDICARE, OTHER, SELFPAY ==
[2023-10-09] VITALS (7 sets, daily range): BP systolic 134–166; BP diastolic 68–78; PULSE 67–91; RESP 18; TEMP 36.5; O2SAT 95–100; BMI 24.5
--- NOTE | 2023-10-09 14:15 | ED_ITS ---
HPI - Extremity Problem General Chief complaint: Extremity Problem,Nontraumatic Stated complaint: Thinks she has a blood Sent from her PCP Time Seen by Provider: 10/09/23 14:07 Source: patient Mode of arrival: Ambulatory History of Present Illness HPI Narrative: Patient is a 77-year-old female. Within the past 6 months sustained an ischemic stroke. Is on Plavix. Is here for evaluation of pain and swelling to her left foot and left lower extremity. Denies trauma. He was having quite a bit of difficulty walking on her foot because of the pain. No fevers. No history of gout. No skin changes. No chest pain. No shortness of breath. No abdominal pain or nausea or vomiting. Related Data Home Medications Medication Instructions Recorded Confirmed calcium carbonate 600 mg calcium 600 mg PO DAILY ##0 10/11/16 09/03/23 (1,500 mg) tablet aspirin 81 mg tablet,delayed 81 mg PO DAILY 09/03/23 09/03/23 release (Adult Aspirin Regimen) Previous Rx's Medication Instructions Recorded meloxicam 15 mg tablet 15 mg PO DAILY #30 tabs 11/04/21 Disabled Parking #1 ea 09/03/23 amlodipine 5 mg tablet 5 mg PO BID #180 tabs 09/04/23 atorvastatin 40 mg tablet 40 mg PO DAILY #90 tabs 09/04/23 clopidogrel 75 mg tablet 75 mg PO DAILY #90 tabs 09/04/23 furosemide 20 mg tablet (Lasix) 20 mg PO QAM #14 tabs 10/09/23 Allergies Allergy/AdvReac Type Severity Reaction Status Date / Time ampicillin [AMPICILLIN] Allergy Mild ANGIOEDEMA Verified 09/03/23 11:58 Sulfa (Sulfonamide Allergy Mild RASH Verified 09/03/23 11:58 Antibiotics) [SULFA (SULFONAMIDE ANTIBIOTICS)] Review of Systems Constitutional Constitutional: Reports system reviewed and no additional complaints, except as documented Musculoskeletal Musculoskeletal: Reports system reviewed and no additional complaints, except as documented Integumentary/Breasts Skin/Breast: Reports system reviewed and no additional complaints, except as documented Neurologic Neurologic: Reports system reviewed and no additional complaints, except as documented Hematologic/Lymphatic On Anticoagulants: No Patient History Medical History Family history of osteoporosis Lymphocytic colitis Sjogren's syndrome Fractures Osteoporosis Scoliosis Shoulder pain Mumps Measles Chicken pox Knee pain Foot pain Surgical History Anesthesia complication History of colonoscopy (03/22/12) Family History Father Heart disease High cholesterol Osteoporosis Grandfather Stroke Mother Diabetes mellitus High cholesterol Grandfather Cancer Sister No problems noted. Social History marital status: household members: spouse occupational status: previously employed Smoking Status: Never smoker second hand exposure: No alcohol intake: current substance use type: does not use Smoking Status: Never smoker Substance Use Type: does not use Exam Initial Vital Signs Initial Vital Signs: Vital Signs Temperature 97.7 F 10/09/23 14:05 Pulse Rate 89 10/09/23 14:05 Respiratory Rate 18 10/09/23 14:05 Blood Pressure 162/78 H 10/09/23 14:05 Pulse Oximetry 100 10/09/23 14:05 Oxygen Delivery Method Room Air 10/09/23 14:05 Resp Effort & Inspection: normal respiratory effort Cardio Rate: regular rate Skin General: no rashes or lesions noted Neuro Sensory Exam: no sensory deficits noted Extrem General: capillary refill normal and edema (Left lower extremity) Course Orders Ordered: ED Orders 10/09/23 14:16 US periph venous low extrem lt Stat 10/09/23 14:24 Basic Metabolic Panel Stat Complete Blood Count AUTO DIFF Stat Vital Signs Vital signs: Vital Signs - 8 hr 10/09/23 14:05 10/09/23 14:09 10/09/23 14:10 Temperature 97.7 F Pulse Rate 89 88 91 H Respiratory Rate 18 Blood Pressure 162/78 H Pulse Oximetry 100 95 100 Oxygen Delivery Method Room Air 10/09/23 14:10 10/09/23 15:16 10/09/23 15:17 Temperature Pulse Rate 72 Respiratory Rate Blood Pressure 166/78 H 139/71 Pulse Oximetry 97 Oxygen Delivery Method 10/09/23 15:17 10/09/23 15:30 10/09/23 15:30 Temperature Pulse Rate 69 69 Respiratory Rate Blood Pressure 134/68 Pulse Oximetry 98 99 Oxygen Delivery Method MDM - Extremity (Nontraumatic) Lab Data 10/09/23 14:24 10/09/23 14:24 Labs: Lab Results 10/09/23 Range/Units 14:24 WBC 8.1 (4.5-11.0) X10^3/uL RBC 3.85 L (4.0-5.2) X10^6/uL Hgb 12.4 (12.0-16.0) g/dL Hct 35.9 L (36-46) % MCV 93.1 (80-100) fL MCH 32.2 (26-34) PG MCHC 34.5 (30-36) % RDW 12.4 (11.6-14.8) % Plt Count 320 (150-400) X10^3/uL Neut % (Auto) 66.2 (50-75) % Lymph % (Auto) 23.0 L (25-40) % [place] % (Auto) 7.3 (3-14) % Eos % (Auto) 3.0 (2-4) % Baso % (Auto) 0.5 (0-2) % Neut # (Auto) 5400 (5765-9941) /uL Lymph # (Auto) 1900 (8410-3795) /uL [place] # (Auto) 600 (0-900) /uL Eos # (Auto) 200 (0-450) /uL Baso # (Auto) 0 (0-100) /uL Sodium 140 (137-145) mmol/L Potassium 3.2 L (3.4-5.1) mmol/L Chloride 105 (98-107) mmol/L Carbon Dioxide 28 (22-32) mmol/L BUN 11 (7-17) mg/dL Creatinine 0.65 (0.52-1.04) mg/dL Estimated GFR > 60 (>60) mL/min BUN/Creatinine Ratio 16.9 (6-22) Glucose 147 H (80-110) mg/dL Calcium 9.4 (8.4-10.2) mg/dL Imaging Data US - DVT: Radiologist's Impression: PROCEDURE: US PERIPH VENOUS LOW EXTREM LT INDICATIONS: Swelling, eval for DVT TECHNIQUE: Real-time imaging, as well as color and pulse Doppler interrogation, were performed of the lower extremity deep veins from the inguinal ligament to the popliteal fossa, with documentation of the visualized calf veins. COMPARISON: None. FINDINGS: The common femoral, femoral, popliteal, and the visualized calf veins are normally compressible, and free of intraluminal thrombus. Color and pulse Doppler demonstrate normal phasic intraluminal flow. There is normal augmentation response to distal compression maneuver. IMPRESSION: No findings of lower extremity deep venous thrombosis. MDM Narrative Medical decision making narrative: She does have swelling to her left lower leg. No trauma. Low suspicion for fracture. No skin changes concerning for infection. Low suspicion for septic joint. Low suspicion for gout. Negative for DVT. She was on amlodipine. Potentially this could be causing her symptoms however the plan will be is to what her on Lasix for the next couple days. She has a follow-up with her primary doctor in about 1 month. She was given strict return precautions. She expressed understanding and agreement. Discharge Plan Departure Patient Disposition: Home Clinical Impression: Edema Instructions: How to Use an Elastic Bandage -- Edema, DI for Peripheral Edema- Unilateral Activity Restrictions/Additional Instructions: I do recommend that you take the furosemide/Lasix 1 time a day like we discussed. You can take it as needed. Try to keep your leg elevated. You can use an elastic bandage for compression stockings. If your symptoms worsen or you develop fevers or shortness of breath or redness please return to the emergency department. If your symptoms do not improve on the Lasix you may need a talk with your primary doctor about whether or not this is amlodipine that is causing your symptoms. Prescriptions: New furosemide [Lasix] 20 mg tablet 20 mg PO QAM Qty: 14 0RF No Action meloxicam 15 mg tablet 15 mg PO DAILY Qty: 30 3RF aspirin [Adult Aspirin Regimen] 81 mg tablet,delayed release (DR/EC) 81 mg PO DAILY (DME) Disabled Parking See Rx Instructions .ROUTE .MEDSUPPLY Qty: 1 0RF Rx Instructions: I find this patient to be medical disabled and qualified for Disabled Parking as indicated, and signed, on the and the Accompanying Disabled Parking Application for Individuals. calcium carbonate 600 MG tablet 600 mg PO DAILY Qty: 0 amlodipine 5 mg tablet 5 mg PO BID Qty: 180 3RF atorvastatin 40 mg tablet 40 mg PO DAILY Qty: 90 3RF clopidogrel 75 mg tablet 75 mg PO DAILY Qty: 90 0RF Referrals: Macrina Iniguez MD [Primary Care Provider] - Stand Alone Forms: Patient Portal/API
[2023-10-09 14:30] LABS: Add Manual Diff / Slide Review NO; Basophils Absolute Auto 0 /uL (0-100); Basophils Percent Auto 0.5 % (0-2); Eosinophils Absolute Auto 200 /uL (0-450); Hematocrit 35.9 % (36-46); Hemoglobin 12.4 g/dL (12.0-16.0); Lymphocytes Absolute Auto 1900 /uL (1100-4500); Mean Corpuscular HGB Conc 34.5 % (30-36); Mean Corpuscular Hemoglobin 32.2 PG (26-34); Mean Corpuscular Volume 93.1 fL (80-100); Monocytes Absolute Auto 600 /uL (0-900); Monocytes Percent Auto 7.3 % (3-14); Neutrophils Absolute Auto 5400 /uL (1500-7000); Neutrophils Percent Auto 66.2 % (50-75); Platelet Count 320 X10^3/uL (150-400); Red Blood Cell Count 3.85 X10^6/uL (4.0-5.2); Red Cell Distribution Width 12.4 % (11.6-14.8); White Blood Cell Count 8.1 X10^3/uL (4.5-11.0)
[2023-10-09 14:41] LABS: BUN Creatinine Ratio 16.9 (6-22); Blood Urea Nitrogen 11 mg/dL (7-17); Calcium 9.4 mg/dL (8.4-10.2); Carbon Dioxide 28 mmol/L (22-32); Chloride 105 mmol/L (98-107); Estimated Glomerular Filt Rate > 60 mL/min (>60); Glucose 147 mg/dL (80-110); HEMOLYSIS < 15 (0-50); Potassium 3.2 mmol/L (3.4-5.1); Sodium 140 mmol/L (137-145)
== END 2023-10-09 16:16 | disposition home or self-care (01) ==
PROVIDERS: Emergency Provider Emergency Medicine; PCP Family Medicine
DX: R60.0 Localized edema (principal)
CPT/HCPCS: 80048; 85025; 93971; 99283; 99284

== ENCOUNTER → 2023-11-12 06:42 | Outpatient (CLI) | payer MEDICARE, OTHER, SELFPAY ==
[2023-11-12 08:20] LABS: Hemoglobin A1C% w Est Avg Glu 5.3 % (4.0-6.0)
[2023-11-12 08:43] LABS: Creatinine Urine Random 46.12 mg/dL
[2023-11-12 08:47] LABS: Alanine Aminotransferase 22 IU/L (<35); Albumin 4.2 g/dL (3.5-5.0); Albumin Globulin Ratio 1.4 (1.0-2.8); Alkaline Phosphatase 109 U/L (38-126); Aspartate Aminotransferase 29 IU/L (14-36); BUN Creatinine Ratio 11.3 (6-22); Bilirubin Total 0.7 mg/dL (0.2-1.3); Blood Urea Nitrogen 8 mg/dL (7-17); Calcium 9.6 mg/dL (8.4-10.2); Carbon Dioxide 28 mmol/L (22-32); Chloride 107 mmol/L (98-107); Cholesterol 166 mg/dL (140-199); Estimated Glomerular Filt Rate > 60 mL/min (>60); Globulin 3.1 g/dL (1.7-4.1); Glucose 93 mg/dL (80-110); HDL Cholesterol 79 mg/dL (40-60); HEMOLYSIS < 15 (0-50); LDL Cholesterol Calculated 66 mg/dL (<100); Potassium 4.3 mmol/L (3.4-5.1); Sodium 140 mmol/L (137-145); Total Protein 7.3 g/dL (6.3-8.2); Triglycerides 106 mg/dL (35-150)
[2023-11-12 08:52] LABS: Microalbumin Urine Random < 0.6 mg/dL (0-1.6)
== END ==
PROVIDERS: PCP Family Medicine; Referring Provider Family Medicine; Visit Provider Family Medicine
DX: I10 Essential (primary) hypertension (principal)
CPT/HCPCS: 36415; 80053; 80061; 82043; 82570; 83036

== ENCOUNTER → 2023-11-23 14:17 | Outpatient (CLI) | payer MEDICARE, OTHER, SELFPAY ==
--- NOTE | 2023-11-23 14:18 | DI.RAD.S_ITS ---
PROCEDURE: XR DEXA AXIAL SKELETON INDICATIONS: screening COMPARISON: [facility], , XR DEXA AXIAL SKELETON, 12/01/2021, 13:06. [facility], [place], DEXA AXIAL SKELETON, 11/01/2016, 12:50. FINDINGS: Lumbar Spine: Bone mineral density 0.733 g/cm2, T score -2.9. Left Hip: Bone mineral density 0.653 g/cm2, T score -2.4. Left Femoral Neck: Bone mineral density 0.574 g/cm2, T score -2.5. Right Hip: Bone mineral density 0.692 g/cm2, T score -2.0. Right Femoral Neck: Bone mineral density 0.533 g/cm2, T score -2.8. Fracture Risk Calculation (when applicable): 10-year fracture risk of a major osteoporotic fracture 50% and of a hip fracture 36%. (T score greater or equal to -1.0 to: NORMAL) (T score from -1.1 to -2.4: OSTEOPENIA) (T score less than or equal to -2.5: OSTEOPOROSIS) IMPRESSION: Osteoporosis. Follow-up guidelines as follows: Osteoporosis: Consider a repeat DEXA and Vertebral Fracture Assessment (VFA) exam in 2 years or sooner if medically necessary, to reassess this patient's status. Osteopenia: Consider a repeat DEXA in 2-3 years to reassess this patient's status, or if there is a new clinical indication. Normal: Consider a repeat DEXA in 5 years or sooner, or if there is a new clinical indication. All treatment decisions require clinical judgment and consideration of individual patient factors, including patient preferences, comorbidities, previous drug use, risk factors not captured in the FRAX model (e.g., frailty, falls, vitamin D deficiency, increased bone turnover, interval significant decline in bone density ) and possible under- or over-estimation of fracture risk by FRAX. In addition, the NOF Guide recommends that FDA-approved medical therapies be considered in postmenopausal women and men age >= 50 years with a: * Hip or vertebral (clinical or morphometric) fracture * T-score of <=-2.5 at the spine or hip * Ten-year fracture probability by FRAX of >= 3% for hip fracture or >=20% for major osteoporotic fracture. People with diagnosed cases of osteoporosis or at high risk for fracture should have regular bone mineral density tests. For patients eligible for Medicare, routine testing is allowed once every 2 years. The testing frequency can be increased to one year for patients who have rapidly progressing disease, those who are receiving or discontinuing medical therapy to restore bone mass, or have additional risk factors. Dictated by: Chase David M.D. on 11/23/2023 at 23:10 Approved by: Chase David M.D. on 11/23/2023 at 23:13
== END ==
PROVIDERS: PCP Family Medicine; Referring Provider Family Medicine; Visit Provider Family Medicine
DX: M81.0 Age-related osteoporosis without current pathological fracture (principal); Z78.0 Asymptomatic menopausal state
CPT/HCPCS: 77080

== ENCOUNTER → 2023-12-14 13:14 | Outpatient (CLI) | payer MEDICARE, OTHER, SELFPAY ==
--- NOTE | 2023-12-14 13:15 | DI.US.S_ITS ---
PROCEDURE: US PERIPH VENOUS LOW EXTREM BI INDICATIONS: swelling TECHNIQUE: Real-time imaging, as well as color and pulse Doppler interrogation, were performed of the deep veins of both legs from the inguinal ligament to the popliteal fossa, with documentation of the visualized calf veins. COMPARISON: None. FINDINGS: Right: The common femoral, femoral, popliteal, and the visualized calf veins are normally compressible, and free of intraluminal thrombus. Color and pulse Doppler demonstrate normal phasic intravascular flow. There is normal augmentation response to distal compression maneuver. Left: The common femoral, femoral, popliteal, and the visualized calf veins are normally compressible, and free of intraluminal thrombus. Color and pulse Doppler demonstrate normal phasic intravascular flow. There is normal augmentation response to distal compression maneuver. IMPRESSION: No findings of deep venous thrombosis in either lower extremity. Dictated by: Shola Pedraza M.D. on 12/14/2023 at 13:47 Approved by: Shloa Pedraza M.D. on 12/14/2023 at 13:47
== END ==
PROVIDERS: PCP Family Medicine; Referring Provider Family Medicine; Visit Provider Family Medicine
DX: I82.409 Acute embolism and thrombosis of unspecified deep veins of unspecified lower extremity (principal); R60.0 Localized edema
CPT/HCPCS: 93970

== ENCOUNTER → 2024-01-08 15:04 | Outpatient (CLI) | payer MEDICARE, OTHER, SELFPAY ==
[2024-01-08 15:35] LABS: BUN Creatinine Ratio 18.4 (6-22); Blood Urea Nitrogen 14 mg/dL (7-17); Calcium 9.5 mg/dL (8.4-10.2); Carbon Dioxide 29 mmol/L (22-32); Chloride 100 mmol/L (98-107); Estimated Glomerular Filt Rate > 60 mL/min (>60); Glucose 101 mg/dL (80-110); HEMOLYSIS 19 (0-50); Potassium 3.2 mmol/L (3.4-5.1); Sodium 138 mmol/L (137-145)
== END ==
PROVIDERS: PCP Family Medicine; Referring Provider Family Medicine; Visit Provider Family Medicine
DX: R60.0 Localized edema (principal)
CPT/HCPCS: 36415; 80048

== ENCOUNTER → 2024-01-25 07:26 | Outpatient (CLI) | payer MEDICARE, OTHER, SELFPAY ==
[2024-01-25 08:54] LABS: BUN Creatinine Ratio 17.1 (6-22); Blood Urea Nitrogen 13 mg/dL (7-17); Calcium 9.5 mg/dL (8.4-10.2); Carbon Dioxide 29 mmol/L (22-32); Chloride 100 mmol/L (98-107); Estimated Glomerular Filt Rate > 60 mL/min (>60); Glucose 93 mg/dL (80-110); HEMOLYSIS < 15 (0-50); Potassium 3.5 mmol/L (3.4-5.1); Sodium 139 mmol/L (137-145)
== END ==
LOC: LAB 07:27
PROVIDERS: PCP Family Medicine; Referring Provider Family Medicine; Visit Provider Family Medicine
DX: E87.6 Hypokalemia (principal)
CPT/HCPCS: 36415; 80048

== ENCOUNTER → 2024-02-20 11:38 | Outpatient (CLI) | payer MEDICARE, OTHER, SELFPAY ==
--- NOTE | 2024-02-20 11:39 | DI.RAD.S_ITS ---
PROCEDURE: XR FOOT LT MIN 3V INDICATIONS: foot pain TECHNIQUE: 3 views of the foot were acquired. COMPARISON: [facility], , XR FOOT RT MIN 3V, 01/09/2023, 13:51. FINDINGS: Bones: No fractures or dislocations. Mild hallux valgus angulation of the 1st MTP with medial bunion formation. Mild diffuse interphalangeal and 1st MTP joint degeneration. No suspicious bony lesions. Soft tissues: No tibiotalar joint effusion. Achilles tendon appears normal. IMPRESSION: 1. No acute osseous abnormalities. 2. Mild hallux valgus angulation of the 1st MTP with medial bunion formation. 3. Mild diffuse interphalangeal and 1st MTP joint degeneration. Dictated by: Derrick Sun M.D. on 02/20/2024 at 15:16 Approved by: Derrick Sun M.D. on 02/20/2024 at 15:16
== END ==
PROVIDERS: PCP Family Medicine; Referring Provider Family Medicine; Visit Provider Family Medicine
DX: M20.12 Hallux valgus (acquired), left foot (principal); M21.612 Bunion of left foot; M19.072 Primary osteoarthritis, left ankle and foot; M79.673 Pain in unspecified foot
CPT/HCPCS: 73630

== ENCOUNTER → 2024-09-12 06:48 | Outpatient (CLI) | payer MEDICARE, OTHER, SELFPAY ==
[2024-09-12 08:56] LABS: Add Manual Diff / Slide Review NO; Basophils Absolute Auto 0 /uL (0-100); Basophils Percent Auto 0.5 % (0-2); Eosinophils Absolute Auto 300 /uL (0-450); Eosinophils Percent Auto 3.6 % (2-4); Hematocrit 36.1 % (36-46); Hemoglobin 12.5 g/dL (12.0-16.0); Lymphocytes Absolute Auto 2100 /uL (1100-4500); Mean Corpuscular HGB Conc 34.6 % (30-36); Mean Corpuscular Hemoglobin 32.4 PG (26-34); Mean Corpuscular Volume 93.9 fL (80-100); Monocytes Absolute Auto 600 /uL (0-900); Monocytes Percent Auto 7.8 % (3-14); Neutrophils Absolute Auto 5100 /uL (1500-7000); Neutrophils Percent Auto 62.1 % (50-75); Platelet Count 265 X10^3/uL (150-400); Red Blood Cell Count 3.84 X10^6/uL (4.0-5.2); Red Cell Distribution Width 12.7 % (11.6-14.8); White Blood Cell Count 8.2 X10^3/uL (4.5-11.0)
[2024-09-12 09:18] LABS: Alanine Aminotransferase 19 IU/L (<35); Albumin 4.4 g/dL (3.5-5.0); Albumin Globulin Ratio 1.5 (1.0-2.8); Alkaline Phosphatase 116 U/L (38-126); Aspartate Aminotransferase 29 IU/L (14-36); BUN Creatinine Ratio 18.2 (6-22); Bilirubin Total 0.7 mg/dL (0.2-1.3); Blood Urea Nitrogen 14 mg/dL (7-17); Calcium 9.3 mg/dL (8.4-10.2); Carbon Dioxide 27 mmol/L (22-32); Chloride 103 mmol/L (98-107); Cholesterol 203 mg/dL (140-199); Estimated Glomerular Filt Rate > 60 mL/min (>60); Globulin 2.9 g/dL (1.7-4.1); Glucose 98 mg/dL (80-110); HEMOLYSIS < 15 (0-50); Potassium 4.2 mmol/L (3.4-5.1); Sodium 138 mmol/L (137-145); Total Protein 7.3 g/dL (6.3-8.2); Triglycerides 77 mg/dL (35-150)
[2024-09-12 09:29] LABS: HDL Cholesterol 112 mg/dL (40-60); LDL Cholesterol Calculated 76 mg/dL (<100)
[2024-09-12 17:06] LABS: Microalbumin Urine Random 1.7 mg/dL (0-1.6)
== END ==
PROVIDERS: PCP Family Medicine; Referring Provider Family Medicine; Visit Provider Family Medicine
DX: I10 Essential (primary) hypertension (principal)
CPT/HCPCS: 36415; 80053; 80061; 82043; 82570; 85025

== ENCOUNTER → 2024-10-24 07:34 | Outpatient (CLI) | payer MEDICARE, OTHER, SELFPAY ==
--- NOTE | 2024-10-24 07:35 | DI.RAD.S_ITS ---
PROCEDURE: XR HIP W PEL IF DONE RT 2V INDICATIONS: right hip pain TECHNIQUE: AP pelvis with lateral view(s) of the right hip(s). COMPARISON: None. FINDINGS: Bones: No fractures or dislocations. Pelvic ring appears intact. No suspicious bony lesions. Mild to moderate axial hip joint space narrowing with periarticular osteophyte formation bilaterally. Mild osseous prominence along the femoral head/neck junction bilaterally. Degenerative disc and facet disease involves the inferior lumbar spine. Soft tissues: The visualized bowel gas pattern is normal. No suspicious soft tissue calcifications. IMPRESSION: 1. [id number] symmetric hip joint degeneration. 2. Osseous prominence along the head/neck junction bilaterally which can be associated with CAM type acetabular impingement in the appropriate clinical setting. If indicated, MRI could be performed for further assessment. Dictated by: Kavon VELÁZQUEZ Interpreted: Donna Samuel MD on 10/25/2024 at 12:21 Transcribed by: ROBERTO on 10/25/2024 at 12:23 Approved by: Donna Samuel M.D. on 10/27/2024 at 7:43
== END ==
PROVIDERS: PCP Family Medicine; Referring Provider Nurse Practitioner Family; Visit Provider Nurse Practitioner Family
DX: M25.559 Pain in unspecified hip (principal); M16.11 Unilateral primary osteoarthritis, right hip
CPT/HCPCS: 73502